=== PATIENT | female | born 1930 ===

== ENCOUNTER 2019-05-05 22:44 | Emergency (ER) | payer OTHER ==
[2019-05-05] MEDS ORDERED: ONDANSETRON HCL INJ/PF 4 MG/2 ML SDV IV ONE (23:45)
[2019-05-05] MEDS ORDERED: MORPHINE SULFATE 10 MG/ML INJ IV ONE (23:45)
--- NOTE | 2019-05-05 23:47 | ER Document Report ---
ED General - General Chief Complaint: Flank Pain Stated Complaint: BACK PAIN Time Seen by Provider: 05/05/19 23:37 Notes: Patient is an 89-year-old female that comes emergency department chief complaint of right upper back pain. Family at bedside states she has been complaining of this all day, started out less noticeable but now it is sharp. Family states she will randomly look very uncomfortable. She has been complaining of getting out of breath more easily with her activities this week to. She denies chest pain, abdominal pain, nausea/vomiting, fever/chills. She states that she intermittently gets dizzy and will even pass out, however she states she has done this all her life. She does have a history of hypertension, hypothyro idism, dementia. Patient is [place] Citizen-speaking although she speaks limited [place]. She requested her granddaughter to interpret for her instead of having an palliative care specialist from here. TRAVEL OUTSIDE OF THE [place] IN LAST 30 DAYS: No - Related Data Allergies/Adverse Reactions: No Known Allergies Allergy (Unverified 05/05/19 23:19) Past Medical History - General Information source: Patient, Relative - Social History Smoking Status: Never Smoker Frequency of alcohol use: None Drug Abuse: None Lives with: Family Family History: Reviewed & Not Pertinent - Past Medical History Cardiac Medical History: Reports: Hx Hypertension Endocrine Medical History: Reports: Hx Hypothyroidism Review of Systems - Review of Systems Constitutional: See HPI EENT: No symptoms reported Cardiovascular: See HPI Respiratory: See HPI Gastrointestinal: No symptoms reported Genitourinary: No symptoms reported Female Genitourinary: No symptoms reported Musculoskeletal: See HPI Skin: No symptoms reported Hematologic/Lymphatic: No symptoms reported Neurological/Psychological: No symptoms reported Physical Exam - Vital signs Vitals: Resp Pulse Ox 15 98 05/05/19 23:41 05/05/19 23:41 - Notes Notes: GENERAL: Alert, interacts well. Occasionally winces and shifts on the bed but otherwise appears very well. HEAD: Normocephalic, atraumatic. EYES: Pupils equal, round, and reactive to light. Extraocular movements intact. ENT: Oral mucosa moist, tongue midline. Oropharynx unremarkable. Airway patent. Nares patent, no nasal septal hematoma, TM's intact. NECK: Full range of motion. Supple. Trachea midline. LUNGS: Clear to auscultation bilaterally, no wheezes, rales, or rhonchi. No respiratory distress. HEART: Regular rate and rhythm. No murmur ABDOMEN: Soft, non-tender. Non-distended. Bowel sounds present in all 4 quadrants. GENITOURINARY: Deferred EXTREMITIES: Moves all 4 extremities spontaneously. No edema, normal radial and dorsalis pedis pulses bilaterally. No cyanosis. BACK: no cervical, thoracic, lumbar midline tenderness. There is tenderness over the right parathoracic musculature which is palpable and appears to be a small muscle spasm. No saddle anesthesia, normal distal neurovascular exam. Moves all extremities in full range of motion. NEUROLOGICAL: Alert and oriented. Normal speech. Cranial nerves II through XII grossly intact. PSYCH: Normal affect, normal mood. SKIN: Warm, dry, normal turgor. No rashes or lesions noted. Course - Re-evaluation Re-evalutation: Chest x-ray shows possible pneumonia. Patient has palpable flank pain on exam which appears to be musculoskeletal. Good distal pulses. She is not in distress. She is continuing to complain of playing but she stopped complaining after being given pain medication. She has good clear lung sounds. No fever, no hypoxia, no respiratory distress. Urinalysis shows possible infection. CBC, chemistry generally unremarkable. Troponin negative. Discussed possible pneumonia with family. Patient has had no cough, no fever, no symptoms suggesting this except for flank pain. She also has had 3 recent airplane flights with her generalized complaints of shortness of breath. Passin g out is not new. Discussed different options. They state they want patient to be L to fly again and they are worried to have her fly if she has not been fully evaluated. Decision was made to perform CTA as a result. CT is negative for clot or pneumonia. Family is very relieved. Patient will be treated for suspected UTI, muscular component, she was provided with pain medication if needed for her back because they states she is not sleeping well because of it, precautions discussed in regards to this especially with patient's history of passing out, this will only be used if needed. Discussed follow-up and return precautions. They state understanding and agreement. - Vital Signs Vital signs: Temp Pulse Resp BP Pulse Ox 18 155/99 H 97 05/06/19 01:00 05/06/19 01:04 05/06/19 01:00 - Laboratory Result Diagrams: 05/05/19 23:53 05/05/19 23:53 Laboratory results interpreted by me: 05/05/19 05/05/19 05/05/19 23:35 23:53 23:53 Hgb 11.4 L Hct 34.3 L Eosinophils % 6.5 H Absolute Eosinophils 0.7 H BUN 33 H Urine Blood SMALL H Ur Leukocyte Esterase LARGE H Discharge - Discharge Clinical Impression: Flank pain, Weakness, Shortness of breath Condition: Stable Disposition: HOME, SELF-CARE Instructions: Oral Narcotic Medication ([facility]) Additional Instructions: Your imaging of your chest does not show any concerning findings. Your evaluation shows pain in the right parathoracic muscles with muscle spasm. Your urine also shows evidence of infection. Take antibiotic as prescribed, take pain medication if needed, take a stool soft ener if you do take the pain medication to avoid constipation, apply heat over the area. Rest. Follow-up with primary care. Return if you worsen including fevers, vomiting, passing out, chest pain, or any other concerning or worsening symptoms. Prescriptions: Cephalexin Monohydrate [Keflex 500 mg Capsule] 500 mg PO BID 7 Days #14 capsule Docusate Sodium [Colace 100 mg Capsule] 100 mg PO ASDIR PRN #30 capsule PRN Reason: Hydrocodone/Acetaminophen [[place] 5-325 mg Tablet] 1 - 2 tab PO ASDIR #12 tablet
[2019-05-06 00:06] LABS: ABSOLUTE BASOPHILS # (AUTO) 0.1 10^3/uL (0.0-0.2); ABSOLUTE EOSINOPHILS # (AUTO) 0.7 10^3/uL (0.0-0.6); ABSOLUTE LYMPHOCYTES (AUTO) 1.9 10^3/uL (0.5-4.7); ABSOLUTE MONOCYTES (AUTO) 0.8 10^3/uL (0.1-1.4); BASOPHILS % (AUTO) 0.5 % (0-2); EOSINOPHILS % (AUTO) 6.5 % (0-6); HEMATOCRIT 34.3 % (36.0-47.0); HEMOGLOBIN 11.4 g/dL (12.0-15.5); LYMPHOCYTES % (AUTO) 18.3 % (13-45); MEAN CORPUSCULAR HEMOGLOBIN 29.4 pg (27.0-33.4); MEAN CORPUSCULAR HGB CONC 33.3 g/dL (32.0-36.0); MEAN CORPUSCULAR VOLUME 88 fl (80-97); MONOCYTES % (AUTO) 7.4 % (3-13); PLATELET COUNT 311 10^3/uL (150-450); RED BLOOD COUNT 3.88 10^6/uL (3.72-5.28); RED CELL DISTRIBUTION WIDTH 13.6 % (11.5-14.0); SEGMENTED NEUTROPHILS % (AUTO) 67.3 % (42-78); TOTAL CELLS COUNTED % (AUTO) 100 %; WHITE BLOOD COUNT 10.4 10^3/uL (4.0-10.5)
[2019-05-06 00:23] LABS: ALANINE AMINOTRANSFERASE 24 U/L (9-52); ALBUMIN 3.9 g/dL (3.5-5.0); ALKALINE PHOSPHATASE 75 U/L (38-126); ANION GAP 8 (5-19); ASPARTATE AMINO TRANSFERASE 23 U/L (14-36); BILIRUBIN,DIRECT 0.1 mg/dL (0.0-0.4); BILIRUBIN,TOTAL 0.2 mg/dL (0.2-1.3); BLOOD UREA NITROGEN 33 mg/dL (7-20); CALCIUM 9.4 mg/dL (8.4-10.2); CARBON DIOXIDE 28 mmol/L (22-30); CHLORIDE 102 mmol/L (98-107); GLUCOSE 107 mg/dL (75-110); POTASSIUM 4.1 mmol/L (3.6-5.0); SODIUM 138.3 mmol/L (137-145); TOTAL PROTEIN 6.7 g/dL (6.3-8.2)
[2019-05-06] MEDS ORDERED: FENTANYL CITRATE INJ/PF 100 MCG/2 ML AMPUL IV ONE (01:00)
[2019-05-06 01:04] VITALS: BP 155/99
[2019-05-06 01:10] LABS: APPEARANCE,URINE CLEAR; BILIRUBIN,URINE NEGATIVE (NEGATIVE); COLOR,URINE YELLOW; GLUCOSE, URINE NEGATIVE (NEGATIVE); KETONES,URINE NEGATIVE (NEGATIVE); LEUKOCYTE ESTERASE,URINE LARGE (NEGATIVE); NITRITE,URINE NEGATIVE (NEGATIVE); PROTEIN,URINE NEGATIVE (NEGATIVE); URINE SPECIFIC GRAVITY 1.014; UROBILINOGEN,URINE NEGATIVE mg/dL (<2.0)
--- NOTE | 2019-05-06 01:18 | RADIOLOGY REPORT (SQ) ---
EXAM DESCRIPTION: XR CHEST 2 VIEWS COMPLETED DATE/TME: 05/05/2019 23:45 CLINICAL HISTORY: 89 years, Female, right sided upper back pain, shortness of breath COMPARISON: None. NUMBER OF VIEWS: Two TECHNIQUE: Two views of the chest LIMITATIONS: None. FINDINGS: There are increased left lower lobe interstitial opacities. The heart is normal in size. There is no pneumothorax or pleural effusion. IMPRESSION: Increased left lower lobe interstitial opacities, concerning for pneumonia. copyright 2010 [employer]- All Rights Reserved
--- NOTE | 2019-05-06 02:19 | RADIOLOGY REPORT (SQ) ---
CT angiogram chest with contrast on 05/06/2019 at 2:02 AM CLINICAL INDICATION: Shortness of breath TECHNIQUE: Multiple axial images are obtained throughout the chest following the administration of IV contrast. Computer generated 3D reconstructions/MIPS were performed. This exam was performed according to our departmental dose-optimization program, which includes automated exposure control, adjustment of the mA and/or kV according to patient size and/or use of iterative reconstruction technique. Total DLP is 302.96 mGy*cm. COMPARISON: None FINDINGS: There is no thoracic aortic aneurysm or dissection. Mild coronary artery calcifications and other vascular calcifications are noted. Parapelvic renal cysts are noted. There is a small left hepatic cyst. There is a very small hiatal hernia. Limited visualized upper abdomen is otherwise unremarkable. There is no pleural or pericardial effusion. There is no thoracic adenopathy. There are no filling defects within the pulmonary arteries to suggest a pulmonary embolus. There is minimal bilateral dependent and basilar atelectasis. The lungs are otherwise clear. No bony abnormality is noted. IMPRESSION: 1. No evidence of pulmonary embolus. 2. No acute abnormality.
[2019-05-06] MEDS ORDERED: CEPHALEXIN 500 MG CAPSULE PO ONE (02:44)
[2019-05-06] MEDS ORDERED: HYDROCODONE/ACETAMINOPHEN 5-325 MG (6 TAB/ER DISP) PO PRN (02:44)
[2019-05-06] MEDS ORDERED: LIDOCAINE 5% (700 MG) TRANSDERMAL ADH..PATCH TP ONE (02:45)
--- NOTE | 2019-05-06 09:42 | EKG REPORT ---
SEVERITY:- ABNORMAL ECG - SINUS RHYTHM RBBB AND LAFB PROBABLE LEFT VENTRICULAR HYPERTROPHY : Confirmed by: Alice Bell 06-May-2019 09:41:38
== END 2019-05-06 03:10 | disposition home or self-care (01) ==
LOC: ER 22:44
DX: R10.9 Unspecified abdominal pain (principal); R53.1 Weakness; M54.6 Pain in thoracic spine; R06.02 Shortness of breath; I10 Essential (primary) hypertension; E03.9 Hypothyroidism, unspecified
CPT/HCPCS: 93005; 99284; 96374; 96375; 36415; 85025; 80053; 81001; 84484; 71046; 71275; 93010; J3010; J2270; J2405